=== PATIENT | female | born 1940 | race Two or more races ===

== ENCOUNTER 2017-03-01 08:08 | Outpatient (CLI) | payer OTHER ==
[~2017-03-01] VITALS: Ht 162.6 cm; Wt 81.2 kg
[~2017-03-01 08:08] MED LIST: ACIDOPHILUS PR1 EACH PO; AMBIEN5 MG PO; ASA81 MG; CARDIZEM120 MG; CLONAZEPAM0.5 MG; GLIMEPIRIDE4 MG; LANTUS100 U/ML; LANTUS100 U/ML SQ; LEVAQUIN500 MG PO; LEVAQUIN750 MG PO; LISINOPRIL40 MG; LISINOPRIL40 MG PO; METFORMIN HCL500 MG; METFORMIN HCL500 MG PO; METOPROLOL SUCC50 MG; NORVASC2.5 MG; PLAVIX75 MG; PLAVIX75 MG PO; PROTONIX40 MG PO; SINGULAIR 10MG10 MG; SYNTHROID75 MCG; SYNTHROID75 MCG PO; TESSALON PERLE100 MG PO; TOPROL XL50 MG; TUSSI PRES-B L120 M1 PO; ULTRAM50 MG PO; VISTARIL25 MG PO; VISTARIL50 MG PO; XANAX XR0.5 MG PO; ZESTRIL40 MG; ZOCOR80 MG; ZOLOFT100 MG
== END 2017-03-01 08:20 | disposition home or self-care (01) ==
LOC: OFIC 805 08:08
DX: H93.11 Tinnitus, right ear (principal); R51 Headache

== ENCOUNTER 2017-03-20 12:25 | Outpatient (CLI) | payer OTHER ==
[~2017-03-20] VITALS: Ht 152.4 cm; Wt 81.2 kg
== END 2017-03-20 12:45 | disposition home or self-care (01) ==
LOC: OFIC 805 12:25
DX: R51 Headache (principal); H93.13 Tinnitus, bilateral; F41.8 Other specified anxiety disorders

== ENCOUNTER → 2017-05-27 | Emergency (ER) | payer OTHER ==
[~2017-05-27] VITALS: Ht 157.5 cm; Wt 79.8 kg
[~2017-05-27] MED LIST changes: +ABILIFY2 MG
== END | disposition home or self-care (01) ==
LOC: ER 10:01
DX: M54.5 Low back pain (principal)

== ENCOUNTER 2017-08-03 17:03 | Emergency (ER) | payer OTHER ==
[~2017-08-03] VITALS: Ht 157.5 cm; Wt 77.1 kg
== END 2017-08-03 22:55 | disposition home or self-care (01) ==
LOC: ER 17:03
DX: J11.1 Influenza due to unidentified influenza virus with other respiratory manifestations (principal); J06.9 Acute upper respiratory infection, unspecified

== ENCOUNTER 2017-09-15 12:04 | Emergency (ER) | payer OTHER ==
[~2017-09-15] VITALS: Ht 160 cm; Wt 77.1 kg
[2017-09-15] MEDS ORDERED: SINGULAIR10 MG (12:36)
[2017-09-15] MEDS ORDERED: SYNTHROID75 MCG (12:36)
[2017-09-15] MEDS ORDERED: PEPCID20 MG (12:37)
[2017-09-15] MEDS ORDERED: PROTONIX40 M1 (12:37)
[2017-09-15] MEDS ORDERED: OXCARBAZEPINE150 MG (12:38)
== END 2017-09-15 14:23 | disposition home or self-care (01) ==
LOC: ER 12:04
DX: L74.0 Miliaria rubra (principal)

== ENCOUNTER 2017-12-13 14:18 | Emergency (ER) | payer OTHER ==
[~2017-12-13] VITALS: Ht 157.5 cm; Wt 63.5 kg
[~2017-12-13 14:18] MED LIST changes: +OXCARBAZEPINE150 MG; +PEPCID20 MG; +PROTONIX40 M1; +SINGULAIR10 MG
== END 2017-12-13 18:59 | disposition home or self-care (01) ==
LOC: ER 14:18
DX: M17.12 Unilateral primary osteoarthritis, left knee (principal); M25.562 Pain in left knee

== ENCOUNTER 2018-02-28 11:25 | Emergency (ER) | payer OTHER ==
[~2018-02-28] VITALS: Ht 162.6 cm; Wt 81.6 kg
== END 2018-02-28 22:32 | disposition home or self-care (01) ==
LOC: ER 11:25
DX: R42 Dizziness and giddiness (principal)

== ENCOUNTER 2018-07-25 12:14 | Emergency (ER) | payer OTHER ==
[~2018-07-25] VITALS: Ht 165.1 cm; Wt 82.6 kg
[2018-07-25] MEDS ORDERED: ORPHENADRINE C100 MG PO (14:57)
[2018-07-25] MEDS ORDERED: DICLOFENAC SODI50 MG PO (14:57)
== END 2018-07-25 15:40 | disposition home or self-care (01) ==
LOC: ER 12:14
DX: M72.2 Plantar fascial fibromatosis (principal); M13.872 Other specified arthritis, left ankle and foot

== ENCOUNTER 2018-07-27 13:08 | Emergency (ER) | payer OTHER ==
[~2018-07-27] VITALS: Ht 129.5 cm; Wt 82.6 kg
[~2018-07-27 13:08] MED LIST changes: +DICLOFENAC SODI50 MG PO; +ORPHENADRINE C100 MG PO
== END 2018-07-27 14:33 | disposition home or self-care (01) ==
LOC: ER 13:08
DX: R44.2 Other hallucinations (principal); T50.995A Adverse effect of other drugs, medicaments and biological substances, initial encounter

== ENCOUNTER 2019-02-04 06:52 | Inpatient (IN) | payer OTHER ==
[~2019-02-04] VITALS: Ht 160 cm; Wt 81.6 kg
[2019-02-13] MEDS ORDERED: GABAPENTIN100 M2 PO (13:08)
[2019-02-13] MEDS ORDERED: ARNICA LG1 GM TOP (13:08)
== END 2019-02-13 17:29 | disposition home or self-care (01) | DRG 193 ==
LOC: ER 06:52 → SEC-K 14:00 → MEDJ 14:00
PROVIDERS: ADMIT Internal Medicine
PROC: B246ZZZ Ultrasonography of Right and Left Heart (ICD-10-PCS; principal; 2019-02-04)
PROC: 3E0F7GC Introduction of Other Therapeutic Substance into Respiratory Tract, Via Natural or Artificial Opening (ICD-10-PCS; 2019-02-04)
PROC: 4A033R1 Measurement of Arterial Saturation, Peripheral, Percutaneous Approach (ICD-10-PCS; 2019-02-04)
PROC: 4A12X4Z Monitoring of Cardiac Electrical Activity, External Approach (ICD-10-PCS; 2019-02-04)
PROC: 0S9D30Z Drainage of Left Knee Joint with Drainage Device, Percutaneous Approach (ICD-10-PCS; 2019-02-12)
DX: J15.7 Pneumonia due to Mycoplasma pneumoniae (principal); J80 Acute respiratory distress syndrome; I50.23 Acute on chronic systolic (congestive) heart failure; E87.1 Hypo-osmolality and hyponatremia; J44.1 Chronic obstructive pulmonary disease with (acute) exacerbation; J45.41 Moderate persistent asthma with (acute) exacerbation; E86.0 Dehydration; M25.462 Effusion, left knee; I11.0 Hypertensive heart disease with heart failure; I25.10 Atherosclerotic heart disease of native coronary artery without angina pectoris; I08.3 Combined rheumatic disorders of mitral, aortic and tricuspid valves; E03.8 Other specified hypothyroidism; E11.65 Type 2 diabetes mellitus with hyperglycemia; E11.21 Type 2 diabetes mellitus with diabetic nephropathy; Z79.4 Long term (current) use of insulin

== ENCOUNTER 2019-04-13 19:27 | Emergency (ER) | payer OTHER ==
[~2019-04-13] VITALS: Ht 160 cm; Wt 81.6 kg
[~2019-04-13 19:27] MED LIST changes: +ARNICA LG1 GM TOP; +GABAPENTIN100 M2 PO
[2019-04-14] MEDS ORDERED: IPRATROPIU0.2 MG/1 M IH (04:09)
[2019-04-14] MEDS ORDERED: MEDROLPACK PO (04:09)
[2019-04-14] MEDS ORDERED: XOPENEX0.63 MG/3 IH (04:09)
== END 2019-04-14 05:33 | disposition home or self-care (01) ==
LOC: ER 19:27
DX: J45.998 Other asthma (principal)

== ENCOUNTER 2019-07-29 15:50 | Emergency (ER) | payer OTHER ==
[~2019-07-29] VITALS: Ht 160 cm; Wt 81.6 kg
[~2019-07-29 15:50] MED LIST changes: +IPRATROPIU0.2 MG/1 M IH; +MEDROLPACK PO; +XOPENEX0.63 MG/3 IH
[2019-07-29] MEDS ORDERED: CARVEDILOL6.25 MG (16:03)
[2019-07-29] MEDS ORDERED: ZOLOFT100 MG (16:03)
[2019-07-29] MEDS ORDERED: VISTARIL25 MG PO (16:52)
[2019-07-29] MEDS ORDERED: TUSNEL DIABETI118 ML PO (16:52)
== END 2019-07-29 17:00 | disposition home or self-care (01) ==
LOC: ER 15:50
DX: R05 Cough (principal)

== ENCOUNTER 2019-08-05 10:45 | Inpatient (IN) | payer OTHER ==
[~2019-08-05] VITALS: Ht 160 cm; Wt 81.6 kg
[~2019-08-05 10:45] MED LIST changes: +CARVEDILOL6.25 MG; +TUSNEL DIABETI118 ML PO
[2019-08-05] MEDS ORDERED: BUPROPION HCL200 M1 PO (11:34)
[2019-08-05] MEDS ORDERED: ARICEPT5 MG PO (11:35)
[2019-08-12] MEDS ORDERED: ARICEPT5 MG PO (12:59)
[2019-08-12] MEDS ORDERED: CLOPIDOGREL BIS75 MG PO (12:59)
[2019-08-12] MEDS ORDERED: LISINOPRIL40 MG PO (13:00)
[2019-08-12] MEDS ORDERED: SIMVASTATIN20 MG PO (13:00)
[2019-08-12] MEDS ORDERED: ASA-EC81 MG PO (13:00)
[2019-08-12] MEDS ORDERED: LASIX20 MG PO (13:01)
== END 2019-08-12 16:54 | DRG 193 ==
LOC: ER 10:45 → ICU-2 14:24 → SEC-K 08-09 19:25 → MEDI 08-09 19:27
PROVIDERS: ADMIT Internal Medicine; ATTEND Internal Medicine
PROC: 3E0F7GC Introduction of Other Therapeutic Substance into Respiratory Tract, Via Natural or Artificial Opening (ICD-10-PCS; 2019-08-05)
PROC: 4A03XR1 Measurement of Arterial Saturation, Peripheral, External Approach (ICD-10-PCS; 2019-08-05)
PROC: BW24ZZZ Computerized Tomography (CT Scan) of Chest and Abdomen (ICD-10-PCS; principal; 2019-08-06)
PROC: B246ZZZ Ultrasonography of Right and Left Heart (ICD-10-PCS; 2019-08-06)
PROC: 4A12X4Z Monitoring of Cardiac Electrical Activity, External Approach (ICD-10-PCS; 2019-08-09)
DX: J15.7 Pneumonia due to Mycoplasma pneumoniae (principal); I50.33 Acute on chronic diastolic (congestive) heart failure; E03.8 Other specified hypothyroidism; I25.10 Atherosclerotic heart disease of native coronary artery without angina pectoris; F41.9 Anxiety disorder, unspecified; R06.02 Shortness of breath; I11.0 Hypertensive heart disease with heart failure; E11.65 Type 2 diabetes mellitus with hyperglycemia; E78.49 Other hyperlipidemia

== ENCOUNTER 2019-08-19 16:17 | Outpatient (CLI) | payer OTHER ==
[~2019-08-19 16:17] MED LIST changes: +ARICEPT5 MG PO; +ASA-EC81 MG PO; +BUPROPION HCL200 M1 PO; +CLOPIDOGREL BIS75 MG PO; +LASIX20 MG PO; +SIMVASTATIN20 MG PO
== END 2019-08-19 16:27 | disposition home or self-care (01) ==
LOC: T RESPIRAT 16:17
PROVIDERS: ATTEND Internal Medicine Cardiovascular Disease
DX: J43.8 Other emphysema (principal)